=== PATIENT | female | born 1985 | race Caucasian/White ===

== ENCOUNTER 2018-06-28 18:18 | Emergency (ER) | payer MEDICAID ==
[~2018-06-28] VITALS: Ht 154.9 cm; Wt 93.1 kg
[2018-06-28 18:22] VITALS: Ht 154.9 cm; Wt 93.1 kg
--- NOTE | 2018-06-28 18:36 | EN ---
Date/Time of Note Date/Time of Note DATE: 06/28/18 TIME: 18:34 ER Progress Note Quick RME note: Medical screening exam was initiated and lab/imaging studies were ordered. Patient will be seen in ED 2 by another provider. HPI: 32-year-old female, approximate 13 weeks , presents the ER for concerns of vaginal bleeding and pelvic pain which started prior to arrival. Patient does report blood clot passage. Orders placed: Pelvic ultrasound, UA, Type and Rh, CBC, bHCG LILLI BUSCH PA-C June 28, 2018 18:36
--- NOTE | 2018-06-28 22:41 | ERD ---
ER Documentation Chief Complaint Chief Complaint c/o vag bleed x2 days. 13 weeks HPI Patient is a 32-year-old female, G2, P0, A1, presents the ER for concerns of vaginal bleeding. Patient states she has vaginal bleeding for the last 11 days. Patient reports increased bleeding with occasional blood clot passage over the last 2 days. Patient states she is been using 2-3 pads per day. Patient denies any lightheadedness or dizziness. Patient states she did go to [facility] yesterday. Patient states she was told that she can either have a D&C or take a "pill". Patient states she does not understand what is going on that she presents to [facility]. She has not seen an REGULATORY AND COMPLIANCE TECHNICIAN yet. Patient states her last menstrual period was on 03/30/18. Patient denies any lightheadedness or dizziness. ROS All systems reviewed and are negative except as per history of present illness. Medications Home Meds Active Scripts Methylergonovine Maleate* (Methylergonovine Maleate*) 0.2 Mg/1 Ml Vial, 0.2 MG PO BID for 3 Days, #6 TAB Prov:SARAH GARCIA PA-C 06/29/18 Allergies Allergies: Coded Allergies: No Known Drug Allergies (Verified Allergy, Unknown, 06/28/18) PMhx/Soc Hx Alcohol Use: No Hx Substance Use: No Hx Tobacco Use: No Smoking Status: Never smoker FmHx Family History: No diabetes Physical Exam Vitals Vital Signs Date Temp Pulse Resp B/P (MAP) Pulse Ox O2 O2 Flow FiO2 Time Delivery Rate 06/28/18 98.1 68 20 136/74 98 18:22 (94) Physical Exam GENERAL: Well-developed, well-nourished female. Appears in no acute distress. HEAD: Normocephalic, atraumatic. EYES: Pupils are equally reactive bilaterally. EOMs grossly intact. No conjunctival erythema. ENT: Moist mucous membranes. No uvula deviation. No kissing tonsils. NECK: Supple. No meningismus. Normal range of motion of the neck. LUNG: Clear to auscultation bilaterally. No rhonchi, wheezing, rales or coarse breath sounds. HEART: Regular rate and rhythm. No murmurs, rubs or gallops. ABDOMEN: No scars, ecchymosis or rashes noted. Soft, nontender, and nondistended. Positive bowel sounds in all four quadrants. No rebound tenderness, no guarding. (-) McBurney's point tenderness. No CVA tenderness. FEMALE GENITALIA: Exam was completed with a television audio engineer present. Normal external female genitalia. Small amount of blood noted in vaginal vault. Os is closed. Cervix visualized, normal in appearance without any erythema or discharge. EXTREMITIES: Equal pulses bilaterally. No peripheral clubbing, cyanosis or edema. No unilateral leg swelling. NEUROLOGIC: Alert and oriented. Moving all four extremities without any difficulty. Normal speech. Steady gait. SKIN: Normal color. Warm and dry. No rashes or lesions. Result Diagram: 06/28/181903 Results 24 hrs Laboratory Tests Test 06/28/18 18:55 06/28/18 19:04 Urine Color STRAW Urine Clarity CLEAR Urine pH 6.0 Urine Specific [place] 1.025 Urine Ketones NEGATIVE mg/dL Urine Nitrite NEGATIVE mg/dL Urine Bilirubin NEGATIVE mg/dL Urine Urobilinogen NEGATIVE mg/dL Urine Leukocyte Esterase NEGATIVE Rhea/ul Urine Microscopic RBC 8 /HPF Urine Microscopic WBC 1 /HPF Urine Hemoglobin 1+ mg/dL Urine Glucose 3+ mg/dL Urine Total Protein NEGATIVE mg/dl White Blood Count 10.0 10^3/ul Red Blood Count 5.09 10^6/ul Hemoglobin 15.2 g/dl Hematocrit 44.1 % Mean Corpuscular Volume 86.6 fl Mean Corpuscular Hemoglobin 29.9 pg Mean Corpuscular Hemoglobin Concent 34.5 g/dl Red Cell Distribution Width 11.7 % Platelet Count 277 10^3/UL Mean Platelet Volume 11.1 fl Immature Granulocytes % 0.300 % Neutrophils % 58.1 % Lymphocytes % 35.4 % Monocytes % 5.2 % Eosinophils % 0.8 % Basophils % 0.2 % Nucleated Red Blood Cells % 0.0 /100WBC Immature Granulocytes # 0.030 10^3/ul Neutrophils # 5.8 10^3/ul Lymphocytes # 3.6 10^3/ul Monocytes # 0.5 10^3/ul Eosinophils # 0.1 10^3/ul Basophils # 0.0 10^3/ul Nucleated Red Blood Cells # 0.0 10^3/ul Beta HCG, Quantitative 5341.9 mIU/ml Current Medications Medications Dose Sig/Khushboo Start Time Status Last (Trade) Ordered Route PRN Stop Time Admin Dose Reason Admin 0.2 mg TID ONCE 06/29/18 DC 06/29/18 Methylergonov PO 01:00 02:12 ine Maleate 06/29/18 01:01 (Methergine) Procedures/MDM ED COURSE: The patient was stable throughout ED course. I kept the patient and/or family informed of laboratory and diagnostic imaging results throughout the ED course. DIAGNOSTIC IMAGING: Read by radiologist. Patient: RAUL BOYD : 1985 Age: 32 Sex: F MR #: [id number] DOS: 06/28/18 1834 Ordering MD: LILLI BUSCH PA-C Location: [facility]TE Room/Bed: PROCEDURE: US OB. CLINICAL INDICATION: First trimester hemorrhage. Threatened TECHNIQUE: Transabdominal views of the pelvis are available for review. COMPARISON: No prior studies are available for comparison. FINDINGS: The uterus is anteverted. Uterus is of normal contour and echogenicity. Noted is a single intrauterine gestation sac. Mean sac diameter measures 2.3 cm in diameter. This corresponds to a 5-gqvg-9-day gestation by ultrasound criteria. Noted is a pole with crown-rump length 11 mm corresponding to a gestational age 7 weeks 1 day. No heartbeat is present. There is no subchorionic hemorrhage. The right ovary is not visualized. The left ovary measures 4.8 x 2.9 x 3.1 centimeter. No solid adnexal masses seen. There is a 3.8 cm luteal cyst of the left ovary. There is normal arterial flow to the left ovary on color-flow Doppler imaging. There is no free fluid in the pelvis. No solid pelvic mass is present. IMPRESSION: 6-zjfk-8-day intrauterine gestation without heart beat - rule out blighted ovum. No subchorionic hemorrhage. Nonvisualization right ovary. 3.8 cm luteal cyst left ovary. .Raymond Claros MD, Date Time Electronically viewed and signed by .Raymond Claros MD, on 06/28/2018 19:39 .A/ CC: LILLI BUSCH PA-C [id number] PROCEDURE: US OB. CLINICAL INDICATION: , vaginal bleeding. Recently passed tissue. TECHNIQUE: Multiple sonographic images of the pelvis were obtained. Transabdominal views of the pelvis are available for review. The images were reviewed on a PACS workstation. COMPARISON: 06/28/2018 at 07:05 p.m. FINDINGS: The previously noted intrauterine is no longer evident. The endometrium measures 1.3 cm in thickness. There is no endometrial hypervascularity. The ovaries are not visualized. The adnexa are unremarkable. There is no free pelvic fluid. IMPRESSION: The previously noted intrauterine is no longer evident. No sonographic evidence of retained products of conception. MEDICAL DECISION MAKING: This is a 32-year-old female, G2, P0, A1, presents the ER for concerns of vaginal bleeding x11 days. Afebrile. Patient was hemodynamically stable. Patient states that she was seen at another hospital and told that she would need to take a "pill" or have a D&C. Patient presents to [facility] today stating that she does not understand what is going on given that she thought she was pre gnant. CBC showed no evidence of severe anemia or infection. Patient's beta-hCG was noted to be 5341.9. Patient was O+, there is no indication for RhoGam at this time. Pelvic ultrasound showed 9-slwi-1-day intrauterine gestation without heart beat - rule out blighted ovum. No subchorionic hemorrhage. Nonvisualization right ovary. 3.8 cm luteal cyst left ovary. 9:40 pm Contacted REGULATORY AND COMPLIANCE TECHNICIAN on-call Dr. George via [employer] scooby. Awaiting call back. 10:[address] George called back. She stated that she would come evaluate the patient in the ER. Patient will be signed out to delia Flores. Dispo pending at this time. 8220: Pt signed out to or, Sarah Flores PA-C. Dr. George came to the ER and evaluated pt and bedside. A pelvic exam was done and products were passed. Dr. George requested these to be sent to the lab which was done. She also recommended repeat pelvic U/S to rule out any remaining POC. 0130: repeat Pelvic U/S reveals no IUP and no retained POCs. Discussed this with Dr. George who states pt can be d'cd home with OBGYN follow up Tomorrow. She also recommended pt be dc home with rx methylergonovine 0.2mg 1 tab PO BID x 3 days. Disclaimer: Inadvertent spelling and grammatical errors are likely due to EHR/dictation software use and do not reflect on the overall quality of patient care. Also, please note that the electronic time recorded on this note does not necessarily reflect the actual time of the patient encounter. Departure Diagnosis: Primary Impression: Vaginal bleeding in patient at less than 20 weeks gestation Additional Impression: Blighted ovum Condition: Fair Patient Instructions: Vaginal Bleed in Referrals: [facility] YOU HAVE RECEIVED A MEDICAL SCREENING EXAM AND THE RESULTS INDICATE THAT YOU DO NOT HAVE A CONDITION THAT REQUIRES URGENT TREATMENT IN THE EMERGENCY DEPARTMENT. FURTHER EVALUATION AND TREATMENT OF YOUR CONDITION CAN WAIT UNTIL YOU ARE SEEN IN YOUR DOCTORS OFFICE WITHIN THE NEXT 1-2 DAYS. IT IS YOUR RESPONSIBILITY TO MAKE AN APPOINTMENT FOR FOLOW-UP CARE. IF YOU HAVE A PRIMARY DOCTOR --you should call your primary doctor and schedule an appointment IF YOU DO NOT HAVE A PRIMARY DOCTOR YOU CAN CALL OUR PHYSICIAN REFERRAL HOTLINE AT IF YOU CAN NOT AFFORD TO SEE A PHYSICIAN YOU CAN CHOSE FROM THE FOLLOWING [facility] CLINICS [facility] [address] [facility]. [facility] [address] [facility] [address] [facility]. [facility] [address] [facility]. [facility] [address] [facility]. [facility]. [address] [facility]. [facility] YOU HAVE RECEIVED A MEDICAL SCREENING EXAM AND THE RESULTS INDICATE THAT YOU DO NOT HAVE A CONDITION THAT REQUIRES URGENT TREATMENT IN THE EMERGENCY DEPARTMENT. FURTHER EVALUATION AND TREATMENT OF YOUR CONDITION CAN WAIT UNTIL YOU ARE SEEN IN YOUR DOCTORS OFFICE WITHIN THE NEXT 1-2 DAYS. IT IS YOUR RESPONSIBILITY TO MAKE AN APPOINTMENT FOR FOLOW-UP CARE. IF YOU HAVE A PRIMARY DOCTOR --you should call your primary doctor and schedule and appointment IF YOU DO NOT HAVE A PRIMARY DOCTOR YOU CAN CALL OUR PHYSICIAN REFERRAL HOTLINE AT . IF YOU CAN NOT AFFORD TO SEE A PHYSICIAN YOU CAN CHOSE FROM THE FOLLOWING [facility] INSTITUTIONS: [facility] [address] [place] [address] [facility] [address] [place] [address] [facility] [address] [place] [address] REGULATORY AND COMPLIANCE TECHNICIAN [place] [address] [facility] [address] [place] [address] OFFICE FAX [facility] [address] [place] [address] [address] GRACE [place] [address] [place] [address] DR LESLIE [place] [address] [facility], [address], [facility] [address] [address] [address] [place] [address] [facility] [address] [place] [address] [address] [facility] [address] - [address] [facility] [address] [address] BATES [place] [address] [facility]. [address], [facility] [address] [address] [address] [place], [place] [id number] Additional Instructions: Llame al doctor MILO y walter olga LUCIO PARA DENTRO DE 1-2 PAREDES.Dgale a la secretaria que nosotros le instruimos hacer esta lucio.Avise o llame si aranda condicin se empeora antes de la lucio. Regresa aqui si peor o no mejor. LILLI BUSCH PA-C June 28, 2018 22:41 SARAH GARCIA PA-C June 28, 2018 23:58
[2018-06-29] MEDS ORDERED: METHYLERGONOVINE 0.2 MG TAB PO ONE (01:00)
[2018-06-29] MEDS ORDERED: METH0.2V2 PO (02:30)
[2018-06-29 02:50] VITALS: BP 133/83; PULSE 69; RESP 18
--- NOTE | 2018-06-29 08:51 | CONS ---
Assessment/Plan Assessment/Plan Hospital Course (Demo Recall) Vaginal bleeding in early Initial ultrasound showed presence of gestational sac, after patient passed tissue that was removed from the external cervical office repeat ultrasound performed and did not show any evidence of retained products of conception. Patient was not actively bleeding. Observed. Vitals were stable. Discussed with the patient exam consistent with complete miscarriage. Patient was a stable for discharge. ER attending was notified to discharge the patient with a follow-up with her own DELIVERY TABLE OPERATOR within a week after discharge in the hospital with strict precaution Patient verbalized understanding. All questions were answered. Phone line Italian interpretation used Consultation Date/Type/Reason Admit Date/Time June 28, 2018, Late entry note Type of Consult Gynecology consultation Reason for Consultation Vaginal bleeding in early Date/Time of Note DATE: 06/29/18 TIME: 08:43 Hx of Present Illness 32-year-old G2, P0 obese female with 2 weeks of amenorrhea and vaginal bleeding presented to the emergency room for evaluation. She is noted to be at about 7 weeks by ultrasound. There is a single gestational sac i nside the uterine cavity measuring about 7 weeks with no pole. Patient reports vaginal bleeding for the past 2 weeks however increased since 3 days ago. Reports passing small blood clots. She denies any dizziness, lightheadedness, shortness of breath or chest pain. Patient reports was seen at [facility] on June 18, 2018 for vaginal bleeding,, consistent with threatened miscarriage and was discharged home with SAB precaution. I was called from ED for DELIVERY TABLE OPERATOR evaluation. Constitutional: no complaints, improved; No chills, No diaphoresis, No disoriented, No febrile, No poor po, No requiring IVF, No requiring O2, No other Eyes: No no complaints, No pain, No discharge, No redness, No visual change, No other ENT: No no complaints, No bleeding, No pain, No congestion, No discharge, No dysphagia, No sore throat, No other Respiratory: No no complaints, No pain, No cough, No pleuritic pain, No shortness of breath, No sputum, No wheezing, No other Cardiovascular: No no complaints, No chest pain, No edema, No lightheadedness, No orthopenea, No palpitations, No paroxysmal nocturnal dyspnea, No other Gastrointestinal: pain; No no complaints, No blood, No constipation, No decreased appetite, No diarrhea, No flatus, No nausea, No passing stool, No vomiting, No other Genitourinary: bleeding; No no complaints, No dysuria, No discharge, No flank pain, No hematuria, No other Musculoskeletal: No no complaints, No back pain, No bone/joint pain, No neck pain, No restricted range of motion, No swelling, No other Skin: No no complaints, No bruising, No erythema, No laceration, No pruritis, No rash, No skin lesions, No other Neurologic: No no complaints, No confusion, No dizziness, No focal-weakness, No headache, No syncope, No seizure, No other Lymphatic: No no complaints, No adenopathy, No tender nodes, No lymphadema, No other Psychological: No no complaints, No nl mood/affect, No anxiety, No confusion, No depression, No suicidal, No other Immunologic: No no complaints, No immunodeficiency, No pruritis, No rhinitis, No urticaria, No other Additional Comments PROCEDURE: US OB. CLINICAL INDICATION: , vaginal bleeding. Recently passed tissue. TECHNIQUE: Multiple sonographic images of the pelvis were obtained. T ransabdominal views of the pelvis are available for review. The images were reviewed on a PACS workstation. COMPARISON: 06/28/2018 at 07:05 p.m. FINDINGS: The previously noted intrauterine is no longer evident. The endometrium measures 1.3 cm in thickness. There is no endometrial hypervascularity. The ovaries are not visualized. The adnexa are unremarkable. There is no free pelvic fluid. IMPRESSION: The previously noted intrauterine is no longer evident. No sonographic evidence of retained products of conception. Past Medical History Past medical history: Reports history of diabetes currently on metformin Home Meds Active Scripts Methylergonovine Maleate* (Methylergonovine Maleate*) 0.2 Mg/1 Ml Vial, 0.2 MG PO BID for 3 Days, #6 TAB Prov:BRANDI GARCIA PA-C 06/29/18 Allergies: Coded Allergies: No Known Drug Allergies (Verified Allergy, Unknown, 06/28/18) Past Surgical History Denies any surgery in the past Family History Significant Family History: diabetes, hypertension Social History Denies of smoking drinking alcohol or using any drugs Alcohol Use: none Smoking Status: Never smoker Drug Use: none Exam/Review of Systems Exam Vitals Vital Signs Date Temp Pulse Resp B/P (MAP) Pulse Ox O2 O2 Flow FiO2 Time Delivery Rate 06/29/18 98.6 69 18 133/83 95 Room Air 02:50 (100) Constitutional: alert, oriented, well developed, obese Psych: no complaints, nl mood/affect Head: normocephalic, atraumatic Eyes: nl conjunctiva, EOMI ENMT: nl external ears & nose Respiratory: clear to auscultation, normal air movement Cardiovascular: regular rate and rhythm, nl pulses Gastrointestinal: soft, non-tender, other (There is mild exam tenderness in palpation of lower abdomen. No rebound tenderness, no guarding, no rigidity) Genitourinary - Female: other (Spectrum examination: Cervix appears open. There is some productive conception seen at external cervical loss and was removed using ring forceps. There is about 10 cc of blood in the vault. No abnormal vaginal discharge. Bimanual examination uterus about 9 cm size. No fullness in adnexaNo tenderness in adnexa. No tenderness in adnexa..) Extremities: normal pulses Results Result Diagram: 06/28/181903 Results 24hrs Laboratory Tests Test 06/28/18 18:55 06/28/18 19:04 Urine Color STRAW Urine Clarity CLEAR Urine pH 6.0 Urine Specific [place] 1.025 Urine Ketones NEGATIVE Urine Nitrite NEGATIVE Urine Bilirubin NEGATIVE Urine Urobilinogen NEGATIVE Urine Leukocyte Esterase NEGATIVE Urine Microscopic RBC 8 H Urine Microscopic WBC 1 Urine Hemoglobin 1+ H Urine Glucose 3+ H Urine Total Protein NEGATIVE White Blood Count 10.0 Red Blood Count 5.09 Hemoglobin 15.2 Hematocrit 44.1 Mean Corpuscular Volume 86.6 Mean Corpuscular Hemoglobin 29.9 Mean Corpuscular Hemoglobin Concent 34.5 Red Cell Distribution Width 11.7 Platelet Count 277 Mean Platelet Volume 11.1 H Immature Granulocytes % 0.300 Neutrophils % 58.1 Lymphocytes % 35.4 Monocytes % 5.2 Eosinophils % 0.8 Basophils % 0.2 Nucleated Red Blood Cells % 0.0 Immature Granulocytes # 0.030 Neutrophils # 5.8 Lymphocytes # 3.6 H Monocytes # 0.5 Eosinophils # 0.1 Basophils # 0.0 Nucleated Red Blood Cells # 0.0 Beta HCG, Quantitative 5341.9 MONA ALVARADO MD June 29, 2018 08:51
== END 2018-06-29 02:51 | disposition home or self-care (01) ==
LOC: FTE 18:18
DX: O02.0 Blighted ovum and nonhydatidiform mole (principal)
CPT/HCPCS: 36415; 76801; 76805; 76817; 81001; 84702; 85025; 86900; 86901; Z7502; Z7610

== ENCOUNTER 2018-07-02 19:04 | Emergency (ER) | payer MEDICAID ==
[~2018-07-02] VITALS: Ht 160 cm; Wt 96.0 kg
[~2018-07-02 19:04] MED LIST: METH0.2V2 PO
[2018-07-02 19:10] VITALS: PULSE 71; Ht 160 cm; Wt 96.0 kg
[2018-07-02] MEDS ORDERED: ACETAMINOPHEN 325 MG TAB PO ONE (20:00)
--- NOTE | 2018-07-02 21:50 | ERD ---
ER Documentation Chief Complaint Chief Complaint pt reports more bleeding and pain today ROS All systems reviewed and are negative except as per history of present illness. Medications Home Meds Active Scripts Methylergonovine Maleate* (Methylergonovine Maleate*) 0.2 Mg/1 Ml Vial, 0.2 MG PO BID for 3 Days, #6 TAB Prov:BRANDI GARCIA Matt JUAN 06/29/18 Allergies Allergies: Coded Allergies: No Known Drug Allergies (Verified Allergy, Unknown, 06/28/18) PMhx/Soc Hx Alcohol Use: No Hx Substance Use: No Hx Tobacco Use: No Smoking Status: Never smoker Physical Exam Vitals Vital Signs Date Temp Pulse Resp B/P (MAP) Pulse Ox O2 O2 Flow FiO2 Time Delivery Rate 07/02/18 98.1 71 16 153/85 97 19:10 (107) Physical Exam Const: No acute distress Head: Atraumatic Eyes: Normal Conjunctiva ENT: Normal External Ears, Nose and Mouth. Neck: Full range of motion. No meningismus. Resp: Clear to auscultation bilaterally Cardio: Regular rate and rhythm, no murmurs Abd: Soft, non tender, non distended. Normal bowel sounds Skin: No petechiae or rashes Back: No midline or flank tenderness Ext: No cyanosis, or edema Neur: Awake and alert Psych: Normal Mood and Affect Result Diagram: 07/02/181955 Results 24 hrs Laboratory Tests Test 07/02/18 19:51 07/02/18 19:56 07/02/18 20:00 POC Beta HCG, Qualitative POSITIVE White Blood Count 9.2 10^3/ul Red Blood Count 4.67 10^6/ul Hemoglobin 14.2 g/dl Hematocrit 41.4 % Mean Corpuscular Volume 88.7 fl Mean Corpuscular Hemoglobin 30.4 pg Mean Corpuscular 34.3 g/dl Hemoglobin Concent Red Cell Distribution Width 11.8 % Platelet Count 248 10^3/UL Mean Platelet Volume 11.1 fl Immature Granulocytes % 0.200 % Neutrophils % 55.9 % Lymphocytes % 37.7 % Monocytes % 5.1 % Eosinophils % 0.7 % Basophils % 0.4 % Nucleated Red Blood Cells % 0.0 /100WBC Immature Granulocytes # 0.020 10^3/ul Neutrophils # 5.2 10^3/ul Lymphocytes # 3.5 10^3/ul Monocytes # 0.5 10^3/ul Eosinophils # 0.1 10^3/ul Basophils # 0.0 10^3/ul Nucleated Red Blood Cells # 0.0 10^3/ul Urine Color STRAW Urine Clarity CLEAR Urine pH 5.0 Urine Specific [place] 1.028 Urine Ketones NEGATIVE mg/dL Urine Nitrite NEGATIVE mg/dL Urine Bilirubin NEGATIVE mg/dL Urine Urobilinogen NEGATIVE mg/dL Urine Leukocyte Esterase NEGATIVE Rhea/ul Urine Microscopic RBC 38 /HPF Urine Microscopic WBC 4 /HPF Urine Hemoglobin 2+ mg/dL Urine Glucose 3+ mg/dL Urine Total Protein NEGATIVE mg/dl Current Medications Medications Dose Sig/Khushboo Start Time Status Last (Trade) Ordered Route PRN Stop Time Admin Dose Reason Admin 650 mg ONCE ONCE 07/02/18 DC 07/02/18 Acetaminophen PO 20:00 19:47 (Tylenol 07/02/18 20:01 Tab) Departure Diagnosis: Primary Impression: Vaginal bleeding Condition: Fair Patient Instructions: Understanding Miscarriage: Possible Causes Referrals: [facility] YOU HAVE RECEIVED A MEDICAL SCREENING EXAM AND THE RESULTS INDICATE THAT YOU DO NOT HAVE A CONDITION THAT REQUIRES URGENT TREATMENT IN THE EMERGENCY DEPARTMENT. FURTHER EVALUATION AND TREATMENT OF YOUR CONDITION CAN WAIT UNTIL YOU ARE SEEN IN YOUR DOCTORS OFFICE WITHIN THE NEXT 1-2 DAYS. IT IS YOUR RESPONSIBILITY TO MAKE AN APPOINTMENT FOR FOLOW-UP CARE. IF YOU HAVE A PRIMARY DOCTOR --you should call your primary doctor and schedule an appointment IF YOU DO NOT HAVE A PRIMARY DOCTOR YOU CAN CALL OUR PHYSICIAN REFERRAL HOTLINE AT IF YOU CAN NOT AFFORD TO SEE A PHYSICIAN YOU CAN CHOSE FROM THE FOLLOWING [facility] CLINICS [facility] [address] [facility] [address] [facility]. [facility] [address] [facility] [address] [facility] [address] [facility]. [facility]. [address] [employer]ACHUTE OFFICER [place] [address] [facility] [address] [place] [address] OFFICE FAX , [place] [address] [place] [address] [address]. GRACE, [place] [address] [place] [address] DR LESLIE, [facility] [address] [address] [facility], [address], [place] [address] DR MENDEZVINCENZO, [facility] [address] [place] [address] [address] [facility] [address] [place] [address] [address] [facility] [address] - [address] MCGRATH, JEF[place] [address], [place] [address] DR BATES, STACIE [address] [facility]. [address], [place] [address] DR JOHNS, [place] [address] [place], [place] [id number] Additional Instructions: Llame al doctor MAANA y walter olga LUCIO PARA DENTRO DE 1-2 PAREDES.Dgale a la secretaria que nosotros le instruimos hacer esta lucio.Avise o llame si aranda condicin se empeora antes de la lucio. Regresa aqui si peor o no mejor. Follow up with PARACHUTE OFFICER JED XIAO DO July 02, 2018 21:50
[2018-07-02 22:03] VITALS: BP 147/79; RESP 18
== END 2018-07-02 22:04 | disposition home or self-care (01) ==
LOC: FTE 19:04
DX: N93.9 Abnormal uterine and vaginal bleeding, unspecified (principal)
CPT/HCPCS: 36415; 76830; 76856; 81001; 81025; 85025; Z7502; Z7610